=== PATIENT | female | born 1980 | race Caucasian/White ===

== ENCOUNTER 2020-04-06 13:36 | Emergency (ER) | payer MEDICAID, SELFPAY ==
--- NOTE | 2020-04-06 14:46 | HMH.EDUTC ---
[facility] [place] Clinical Impression: Sebaceous cyst of ear Disposition: Home, Self-Care Condition on Discharge: Good Instructions: DI for Epidermal Cyst Additional Instructions: Follow up with Dr Morales for excision Prescriptions: cephALEXin [Keflex 500mg Cap] 500 mg PO Q6H 10 Days #40 cap Transmission Status: Pending to [facility] Referrals: Tyrone Morales MD [Staff Physician] - Time of Disposition: 14:58 Medical Decision Making - Poli Inquiry Pt receiving controlled substance: No [facility] [place] - General Stated complaint: spot behind ear swollen Time Seen by Provider: 04/06/20 14:51 - History of Present Illness Provider Complaint: Patient has knot behind left ear. Has had for about 4 months. No fever. Tried to raghavendra it and nothing was expressed, but lesion seemed to move inward to the inside of her ear. It is now very tender to touch. Onset (ago): month(s) (4) Location: face Relieving factors: none Exacerbating factors: none Associated symptoms: denies other symptoms Treatments prior to arrival: none - Related Data Home Medications Medication Instructions Recorded Confirmed buprenorphine 5.7 mg-naloxone 1.4 1.5 tab SUBLINGUAL QDAY tab 10/02/17 mg sublingual tablet trazodone 50 mg tablet 50 mg PO QPM tab 10/02/17 Previous Rx's Medication Instructions Recorded cephALEXin [Keflex 500mg Cap] 500 mg PO Q6H 10 Days #40 cap 04/06/20 Allergies Allergy/AdvReac Type Severity Reaction Status Date / Time No Known Allergies Allergy Verified 10/02/17 11:02 [facility] History - Hepatitis A Screen Attestation statement:: This patient has been screened for Hepatitis A risk factors. I have reviewed the patient's past medical history: Yes Other Surgeries: Yes: Tubal Ligation Comment: Tonsilectomy - Social History Smoking Status: Current every day smoker Tobacco Type: cigarettes # Packs/Day (cigarettes): 1 Alcohol Intake: never Substance Use Type: denies use Occupational Status: employed Family Hx:: Diabetes, Cancer ROS Obtained: Yes All systems reviewed & no additional complaints - ENT Ears, Nose, Mouth, and Throat: Reports as per HPI Physical Exam - General General appearance: alert, in no apparent distress - Head Head exam: atraumatic, normocephalic - Eye Eye exam: Present: PERRL - Expanded ENT Exam External ear exam: Present: other (cystic lesion (small marble size) behind left ear) - Neck Neck exam: Absent: lymphadenopathy - Chest Chest inspection: Present: normal inspection, symmetric chest wall rise - Respiratory Respiratory exam: Present: normal lung sounds bilaterally - Cardiovascular Cardiovascular exam: Present: regular rate, normal rhythm - Neurological Exam Neurological exam: Present: alert, oriented X3 - Psychiatric Psychiatric exam: Present: normal affect, normal mood - Skin Skin exam: Present: warm, dry, intact
[2020-04-06 14:56] VITALS: BP 144/85; PULSE 71; RESP 14; TEMP 36.8; O2SAT 100; BMI 18.1
[2020-04-06 15:04] VITALS: BP 144/85; PULSE 71; RESP 14; TEMP 36.8; O2SAT 100
== END 2020-04-06 15:11 | disposition home or self-care (01) ==
PROVIDERS: Emergency Provider Physician Assistant; PCP Internal Medicine Addiction Medicine
DX: L72.3 Sebaceous cyst (principal); F17.210 Nicotine dependence, cigarettes, uncomplicated
CPT/HCPCS: 99201

== ENCOUNTER → 2020-04-14 14:13 | Outpatient (CLI) | payer MEDICAID, SELFPAY ==
--- NOTE | 2020-04-14 | ECG_ITS ---
APPROVED REPORT Exam: Resting ECG HR:93 bpm ECG Measurements Heart Rate 93 AXES DE 124 P 84 QRSd 80 QRS 80 QT 360 T 42 QTc 447 <Conclusion> Normal sinus rhythm Biatrial abnormality Late R-wave progression Abnormal ECG Electronically signed by : Mauricio Fontaine, 04/16/2020 07:55:06
[2020-04-14 14:46] LABS: Basophils % 0.3 % (0.1-2.0); Eosinophils # 0.2 K/mm3 (0.0-0.4); Hematocrit 43.1 % (37.0-47.0); Hemoglobin 14.7 g/dL (12.2-16.2); Lymphocytes # 2.5 K/mm3 (0.7-4.5); Lymphocytes % 29.2 % (10-50); Mean Corpuscular HGB Conc 34.2 g/dL (31.8-35.4); Mean Corpuscular Hemoglobin 31.9 pg (27.0-31.2); Mean Corpuscular Volume 93.3 fl (81-99); Mean Platelet Volume 9.3 fl (7.4-10.4); Monocytes # 0.3 K/mm3 (0.1-1.0); Neutrophils # 5.5 K/mm3 (1.8-7.8); Neutrophils % 64.5 % (37.0-80.0); Platelet Count 209 K/mm3 (142-424); Red Blood Count 4.62 M/mm3 (4.20-5.40); Red Cell Distribution Width 13.1 % (11.5-17.5); White Blood Count 8.6 K/mm3 (4.8-10.8)
[2020-04-14 15:11] LABS: Chloride 104 mmol/L (98-107); Sodium 142 mmol/L (136-145)
[2020-04-14 15:14] LABS: Alanine Aminotransferase 12 U/L (12-78); Albumin Level 4.6 g/dl (3.5-5.0); Albumin/Globulin Ratio 1.6 (1.1-1.8); Alkaline Phosphatase 57 U/L (38-126); Aspartate Amino Transferase 22 U/L (14-36); Bilirubin,Total 0.4 mg/dl (0.2-1.3); Blood Urea Nitrogen 8 mg/dl (7-17); Carbon Dioxide 30 mmol/L (22.0-30.0); Estimated Glomerular Filt Rate 112 ml/min (>60); GFR (African American) 135 ML/MIN (>60); Globulin 2.9 g/dL (1.3-3.2); Total Protein,Serum 7.5 g/dl (6.3-8.2)
[2020-04-14 15:15] LABS: Calcium 10.1 mg/dl (8.4-10.2); Glucose 103 mg/dl (74-100)
[2020-04-14 15:20] LABS: HCG Qualitative, Serum Negative (Negative)
[2020-04-14 17:18] LABS: Coronavirus 19 IgG Antibody Negative (Negative); Coronavirus 19 IgM Antibody Negative (Negative)
== END ==
PROVIDERS: Visit Provider Otolaryngology
DX: Z01.818 Encounter for other preprocedural examination (principal); D23.22 Other benign neoplasm of skin of left ear and external auricular canal
CPT/HCPCS: 36415; 80053; 84703; 85025; 86328; 93005

== ENCOUNTER 2020-04-15 08:39 | Day surgery (SDC) | payer MEDICAID, SELFPAY ==
[2020-04-13 10:42] VITALS: BMI 18.1
[2020-04-15 08:58] VITALS: BP 127/78; PULSE 98; RESP 18; TEMP 36.6; O2SAT 97
--- NOTE | 2020-04-15 10:23 | HMH.ANESCL ---
[facility] Anesthesia Checklist - Patient Identification Patient Identification: Arm Band - Structural Data Admitted From: Home Planned Operative Procedure/s: excision cyst left ear Consent for Planned Operative Procedure(s) Verified: Yes Verified Documents: Surgical Consent, History and Physical - NPO Status Verified Time NPO: 00:00 - Additional verifications Anesthesia Reactions: No Hx Blood Transfusions: No Blood Transfusion Reaction: No - Airway Assessment C-Spine Mobility Assessed: Yes (mp2) TMJ Mobility Assessed: Yes Dentition: Good Dentition - Neurological Assessment Level of Consciousness: Awake, Alert - Anesthesia Plan Anesthesia Risk discussed: Yes Anesthesia Plan: Verified ASA Class: II Anesthesia Type: General [facility] History I have reviewed the patient's past medical history: Yes Medical History: Reports:: Depression Denies:: Cancer, Diabetes Mellitus Type 1, Diabetes Mellitus Type 2, Internal Pacemaker, MRSA, Seizures *Have you ever received a pneumonia vaccine?: No *Have you received a flu vaccine this season?: No Other Medical History: Denies: Blood Transfusion Reaction Anesthesia experience/problems:: nac Laterality Cases: Bilateral: Tonsillectomy Other Surgeries: Yes: Tubal Ligation, Other. No: Pacemaker Amputation: No Fractures: No - *Social History Last grade of school completed: Some college Smoking Status: Current every day smoker Tobacco Type: cigarettes # Packs/Day (cigarettes): 1 Alcohol Intake: never Substance Use Type: denies use *Occupational Status:: employed Housing: house Household Members: significant other, children *Travel in the last 8 weeks: None - Psychiatric History Pschychiatric History:: Reports:: Depression Family Hx:: Unable to obtain
--- NOTE | 2020-04-15 11:39 | HMH.OPNOTE ---
Date of procedure: 04/15/20 Pre-op Diagnosis:: Cystic neoplasm posterior aspect left ear Post-op Diagnosis:: same Procedure performed:: Excision of cystic lesion 2.5 cm posterior aspect left ear with tissue rearrangement repair Surgeon:: Tyrone Morales MD PIECE DYEING MACHINE TENDER:: Andrew Jack Anesthesia: MAC Estimated blood loss (mL): 2 Operative findings:: same Operative note:: With the patient under a local MAC type of anesthesia having been given 1 g of Ancef and 8 mg of Decadron the left ear was prepped and draped the left eye was protected with tape. The perilesional area was infiltrated with 2 cc of 2% lidocaine containing epinephrine. An ellipse of skin was marked out over the cystic lesion and the ellipse of skin was incised and the lesion was mobilized and removed in entirety using tenotomy scissors. Bleeding was 2 cc and stopped with bipolar cautery. Inferior and posterior incisions were made, Surgicel snow was placed in the defect and a tissue rearrangement geometric plastic repair was done with interrupted 4-0 nylon sutures. A Dermabond dressing was applied and the patient was sent to recovery in good general condition. Condition: stable Disposition: PACU Complications:: none
[2020-04-15 11:45] VITALS: BP 125/79; PULSE 64; RESP 18; TEMP 36.2; O2SAT 100
[2020-04-15 12:00] VITALS: BP 110/68; PULSE 68; RESP 18; O2SAT 100
[2020-04-15 12:15] VITALS: BP 107/78; PULSE 67; RESP 18; O2SAT 100
== END 2020-04-15 12:15 | disposition home or self-care (01) ==
LOC: OR 08:40
PROVIDERS: PCP Internal Medicine Addiction Medicine; Visit Provider Otolaryngology
PROC: (CPT 14060; principal; 2020-04-15 10:00)
DX: L72.0 Epidermal cyst (principal); F32.9 Major depressive disorder, single episode, unspecified; Z90.89 Acquired absence of other organs; Z79.899 Other long term (current) drug therapy; Z72.0 Tobacco use; Z80.9 Family history of malignant neoplasm, unspecified; Z83.3 Family history of diabetes mellitus; D23.22 Other benign neoplasm of skin of left ear and external auricular canal
CPT/HCPCS: 14060; 96374; 96375

== ENCOUNTER → 2020-09-01 14:15 | Outpatient (CLI) | payer MEDICAID, SELFPAY ==
--- NOTE | 2020-09-01 14:20 | US_ITS ---
PROCEDURE: US BREAST LT COMPLETE US BREAST RT COMPLETE CLINICAL INDICATION: Fibrocystic breasts/tenderness pt feels small lump COMPARISON: US US BREAST RT COMPLETE from 09/01/2020 FINDINGS: These exams are submitted to me for interpretation on 09/22/2020 Left breast: At 2 o'clock there is an irregular cystic lesion measuring 14 by 8 x 4 mm with some wall thickening posteriorly. At 3 o'clock there is a 5 mm complicated appearing cyst. At 12 o'clock there is a 9 x 5 mm complicated appearing cyst with multiple small internal septa. Small node is present in the axilla. Right breast: Complicated cyst at 5 o'clock at 4 by 4 mm. Complicated cyst at 7 o'clock at 9 by 5 mm. Complicated cyst at 10 o'clock measuring 2.5 x 2.3 x 1.3 cm with internal septa 8 mm complicated cyst at 9 o'clock IMPRESSION: There are bilateral complicated breast cysts. The largest cyst is on the right at 10 o'clock measuring 2.5 cm. The largest cyst does not match the area of palpable concern. Mammogram suggested for complete evaluation BI-RADS category 0, additional imaging recommended. Recommend bilateral diagnostic mammogram Dictated by: Osvaldo Mccracken MD 09/22/2020 14:02 Osvaldo Mccracken MD in [facility] 09/22/2020 14:02
--- NOTE | 2020-09-01 14:20 | XR_ITS ---
PROCEDURE: XR PELVIS 1-2V CLINICAL INDICATION: bilateral hip pain COMPARISON: No exams were available for comparison TECHNIQUE: XR Pelvis AP View FINDINGS: No fracture or dislocation is evident. No significant degenerative change. No lytic or blastic change. IMPRESSION: No acute findings. Dictated by: Dr. David Chavis MD 09/01/2020 15:43 Dr. David Chavis MD in [facility] 09/01/2020 15:43
--- NOTE | 2020-09-01 14:20 | XR_ITS ---
PROCEDURE: XR LUMBAR SPINE MIN 4V CLINICAL INDICATION: lbp COMPARISON: No exams were available for comparison FINDINGS: There is normal curvature and alignment alignment lower lumbar spine. There is mild straightening of the curvature at the thoracolumbar junction suggesting possible muscle spasm. All lumbar vertebrae appear intact and disc spaces are well maintained throughout. There is no pars defect. The SI joints appear normal IMPRESSION: Question mild muscle spasm thoracolumbar junction otherwise normal study Dictated by: Dr. David Chavis MD 09/01/2020 15:42 Dr. David Chavis MD in [facility] 09/01/2020 15:42
[2020-09-01 15:10] LABS: Basophils % 0.4 % (0.1-2.0); Eosinophils # 0.1 K/mm3 (0.0-0.4); Eosinophils % 1.8 % (0.1-12.0); Hematocrit 46.2 % (37.0-47.0); Hemoglobin 14.9 g/dL (12.2-16.2); Lymphocytes # 1.9 K/mm3 (0.7-4.5); Lymphocytes % 25.9 % (10-50); Mean Corpuscular HGB Conc 32.3 g/dL (31.8-35.4); Mean Platelet Volume 10.9 fl (7.4-10.4); Monocytes # 0.4 K/mm3 (0.1-1.0); Monocytes % 5.6 % (1.7-9.3); Neutrophils # 4.8 K/mm3 (1.8-7.8); Neutrophils % 66.3 % (37.0-80.0); Platelet Count 240 K/mm3 (142-424); Red Blood Count 4.81 M/mm3 (4.20-5.40); Red Cell Distribution Width 13.5 % (11.5-17.5); White Blood Count 7.2 K/mm3 (4.8-10.8)
[2020-09-01 15:31] LABS: Alanine Aminotransferase 9 U/L (12-78); Albumin Level 4.2 g/dl (3.5-5.0); Albumin/Globulin Ratio 1.4 (1.1-1.8); Alkaline Phosphatase 58 U/L (38-126); Anion Gap 8.9 mEq/L (5-15); Aspartate Amino Transferase 22 U/L (14-36); Bilirubin,Total 0.5 mg/dl (0.2-1.3); Blood Urea Nitrogen 8 mg/dl (7-17); Calcium 9.7 mg/dl (8.4-10.2); Carbon Dioxide 31 mmol/L (22.0-30.0); Chloride 104 mmol/L (98-107); Chol/HDL Ratio 3.5 (1-3.5); Cholesterol 179 mg/dl (140-200); Estimated Glomerular Filt Rate 112 ml/min (>60); GFR (African American) 135 ML/MIN (>60); Glucose 98 mg/dl (74-100); HDL Cholesterol 51 mg/dl (40-60); Potassium 4.9 mmoL/L (3.5-5.1); Sodium 139 mmol/L (136-145); Total Protein,Serum 7.2 g/dl (6.3-8.2); Triglycerides 72 mg/dl (30-150); VLDL Cholesterol 14 mg/dL (0-40)
[2020-09-01 15:42] LABS: Direct LDL Cholesterol 113.02 mg/dL (100-129)
[2020-09-01 15:48] LABS: T4 (Thyroxine) 9.9 ug/dl (5.53-11.0)
[2020-09-01 16:01] LABS: Thyroid Stimulating Hormone 1.24 uIU/mL (0.465-4.68)
[2020-09-01 16:19] LABS: Vitamin B12 615 pg/mL (239-931)
[2020-09-03 05:13] LABS: Hep A Ab, IgM Negative (Negative); Hepatitis B Core Antibody IgM Negative (Negative); Hepatitis B Surface Antigen Negative (Negative)
[2020-09-04 00:19] LABS: Hepatitis C Antibody <0.1 s/co ratio (0.0-0.9)
== END ==
PROVIDERS: PCP Physician Assistant; Visit Provider Nurse Practitioner Obstetrics & Gynecology
DX: N60.11 Diffuse cystic mastopathy of right breast (principal); N60.12 Diffuse cystic mastopathy of left breast; M25.552 Pain in left hip; M25.551 Pain in right hip; M54.10 Radiculopathy, site unspecified; M54.5 Low back pain; G62.9 Polyneuropathy, unspecified; E55.9 Vitamin D deficiency, unspecified; R74.8 Abnormal levels of other serum enzymes
CPT/HCPCS: 72110; 72170; 76641; 80053; 80061; 80074; 82306; 82607; 84436; 84443; 85025

== ENCOUNTER 2020-09-30 17:00 | Outpatient (RCR) | payer MEDICAID, SELFPAY | END 2020-09-30 17:05 | disposition home or self-care (01) | LOC: PT 17:00 | PROVIDERS: PCP Physician Assistant; Visit Provider Physician Assistant | DX: M54.5 Low back pain (principal); M25.551 Pain in right hip; M25.552 Pain in left hip; M54.10 Radiculopathy, site unspecified | CPT/HCPCS: 97163 ==

== ENCOUNTER → 2021-06-03 09:09 | Outpatient (CLI) | payer MEDICAID, SELFPAY ==
--- NOTE | 2021-06-03 09:10 | CT_ITS ---
PROCEDURE: CT ABDOMEN PELVIS WO CON CLINICAL INDICATION: vomiting Left upper quadrant pain COMPARISON: No exams were available for comparison TECHNIQUE: Axial images obtained with sagittal and coronal reformats. All CT scans at the facility use one or more dose reduction, viz: automated exposure control, ma/kV adjustment per patient size (including targeted exams where dose is matched to indication, i.e. head), or iterative reconstruction technique. FINDINGS: LOWER THORAX: No acute finding ABDOMEN & PELVIS: The liver, gallbladder, spleen, and right adrenal gland are unremarkable. There is enlargement of the upper aspect of the left adrenal gland measuring -5 Hounsfield units consistent with an adenoma measuring 13 mm. No obvious pancreatic mass. No renal or ureteral calculi, hydronephrosis, or obvious renal mass on this unenhanced exam. There is a mild amount of retained colonic feces. No intestinal obstruction or free air. No evidence of appendicitis. No evidence of diverticulitis. There is an IUD in place. The uterus is somewhat canted toward the left. There are bilateral tubal ligation clips. No obvious pelvic mass. Multiple unopacified bowel loops in the abdomen or pelvis which could obscure or mimic pathology. If symptoms persist, consider repeat exam with IV and oral contrast. IMPRESSION: 1. No acute finding. 2. Left adrenal adenoma Dictated by: Osvaldo Mccracken MD 06/04/2021 09:20 Osvaldo Mccracken MD in [facility] 06/04/2021 09:20
--- NOTE | 2021-06-03 09:14 | US_ITS ---
PROCEDURE: US ABDOMEN LIMITED CLINICAL INDICATION: RUQ pain COMPARISON: No exams were available for comparison FINDINGS: PANCREAS: Unremarkable. No obvious mass or abnormal fluid collection. No ductal dilatation. Pancreatic tail not well delineated due to overlying bowel gas. LIVER: No focal liver lesions demonstrated. Homogeneous echogenicity. No intrahepatic biliary ductal dilatation evident. There is appropriate direction of blood flow within a non dilated portal vein RIGHT KIDNEY: Unremarkable. Normal size and echogenicity. No hydronephrosis GALLBLADDER: No gallstones, gallbladder wall thickening, pericholecystic fluid, or biliary dilatation. IMPRESSION: Unremarkable limited abdominal ultrasound as detailed above disc Dictated by: Osvaldo Mccracken MD 06/03/2021 15:43 Osvaldo Mccracken MD in [facility] 06/03/2021 15:43
== END ==
PROVIDERS: PCP Physician Assistant; Visit Provider Physician Assistant
DX: R10.11 Right upper quadrant pain (principal); R11.10 Vomiting, unspecified
CPT/HCPCS: 74176; 76705

== ENCOUNTER → 2021-06-03 10:07 | Outpatient (CLI) | payer MEDICAID, SELFPAY ==
[2021-06-03 10:41] LABS: Basophils # 0.1 K/mm3 (0-0.2); Basophils % 0.9 % (0.1-2.0); Eosinophils # 0.1 K/mm3 (0.0-0.4); Eosinophils % 2.4 % (0.1-12.0); Hematocrit 47.1 % (37.0-47.0); Hemoglobin 15.4 g/dL (12.2-16.2); Lymphocytes # 1.8 K/mm3 (0.7-4.5); Lymphocytes % 34.1 % (10-50); Mean Corpuscular HGB Conc 32.8 g/dL (31.8-35.4); Mean Corpuscular Hemoglobin 31.5 pg (27.0-31.2); Mean Platelet Volume 11.8 fl (7.4-10.4); Monocytes # 0.3 K/mm3 (0.1-1.0); Monocytes % 5.3 % (1.7-9.3); Neutrophils % 57.2 % (37.0-80.0); Platelet Count 169 K/mm3 (142-424); White Blood Count 5.2 K/mm3 (4.8-10.8)
[2021-06-03 11:18] LABS: Alanine Aminotransferase 10 U/L (12-78); Albumin Level 4.3 g/dl (3.5-5.0); Albumin/Globulin Ratio 1.4 (1.1-1.8); Alkaline Phosphatase 63 U/L (38-126); Amylase 58 U/L (30-110); Anion Gap 11.3 mEq/L (5-15); Aspartate Amino Transferase 22 U/L (14-36); Bilirubin,Total 0.5 mg/dl (0.2-1.3); Blood Urea Nitrogen 5 mg/dl (7-17); Calcium 9.3 mg/dl (8.4-10.2); Carbon Dioxide 30 mmol/L (22.0-30.0); Chloride 105 mmol/L (98-107); Estimated Glomerular Filt Rate 111 ml/min (>60); GFR (African American) 135 ML/MIN (>60); Globulin 3.1 g/dL (1.3-3.2); Glucose 88 mg/dl (74-100); Lipase 45 U/L (23-300); Potassium 4.3 mmoL/L (3.5-5.1); Sodium 142 mmol/L (136-145); Total Protein,Serum 7.4 g/dl (6.3-8.2)
[2021-06-03 11:33] LABS: 25-OH Vitamin D, Total 37.2 ng/mL (30-100)
[2021-06-03 11:49] LABS: Thyroid Stimulating Hormone 2.57 uIU/mL (0.465-4.68)
[2021-06-03 12:06] LABS: Vitamin B12 415 pg/mL (239-931)
[2021-06-04 09:58] LABS: Hep A Ab, IgM Negative (Negative); Hepatitis B Core Antibody IgM Negative (Negative); Hepatitis B Surface Antigen Negative (Negative); Hepatitis C Antibody <0.1 s/co ratio (0.0-0.9)
[2021-06-04 18:36] LABS: H. pylori Breath Test Negative (Negative)
== END ==
PROVIDERS: Visit Provider Physician Assistant
DX: R11.10 Vomiting, unspecified (principal); R94.5 Abnormal results of liver function studies
CPT/HCPCS: 36415; 80053; 80074; 82150; 82306; 82607; 83013; 83690; 84443; 85025

== ENCOUNTER → 2021-06-27 11:11 | Outpatient (CLI) | payer MEDICAID, SELFPAY ==
--- NOTE | 2021-06-27 11:19 | MM_ITS ---
PROCEDURE: MM DIG MAMM BI DX W/CAD Digital Breast Tomosynthesis Included CLINICAL INDICATION: palpable nodule dominick breast COMPARISON: US US BREAST RT COMPLETE from 09/01/2020 US US BREAST LT COMPLETE from 09/01/2020 TECHNIQUE: Standard CC and MLO images and 3D Tomosynthesis was obtained. R2 CAD reviewed. FINDINGS: The breasts are extremely dense which lowers the sensitivity of mammography. Right breast: 3 x 2 x 2.4 cm mass is present in the upper outer right breast central 1/3 which is fairly well-circumscribed on the tomographic images. Ultrasound suggested. No malignant appearing calcifications. In the retroareolar region there is a 1.5 cm mass. Faint calcifications are present in the upper aspect of the right breast and central retroareolar region of the right breast. Mag views and straight mL views suggested. Dermal calcifications noted on the right. Faint calcification noted in the outer aspect of the left breast and in the axillary region of the left breast for which Mag views are suggested as well straight mL view. 9 mm nodules present in the outer upper outer left breast anterior 1/3 IMPRESSION: Bilateral breast nodules. Ultrasound is suggested. Ultrasound was performed on 09/01/2020 however mammogram was not performed at that time. Repeat ultrasound is suggested. Also recommend bilateral magnification views as well as straight mL views. BI-RAD Category: 0 Need Additional Imaging Evaluation FOLLOW-UP: Bilateral magnification views as well as bilateral breast ultrasound (A letter has been sent to the patient regarding results of the study.) Dictated by: Osvaldo Mccracken MD 07/06/2021 11:36 Osvaldo Mccracken MD in [place] 07/06/2021 11:36
== END ==
PROVIDERS: PCP Physician Assistant; Visit Provider Nurse Practitioner Obstetrics & Gynecology
DX: R92.8 Other abnormal and inconclusive findings on diagnostic imaging of breast (principal); N63.20 Unspecified lump in the left breast, unspecified quadrant; N63.10 Unspecified lump in the right breast, unspecified quadrant
CPT/HCPCS: 77062; 77066; G0279

== ENCOUNTER → 2021-07-19 12:08 | Outpatient (CLI) | payer MEDICAID, SELFPAY | PROVIDERS: Visit Provider Surgery | DX: Z01.812 Encounter for preprocedural laboratory examination (principal); Z11.52 Encounter for screening for COVID-19; Z13.810 Encounter for screening for upper gastrointestinal disorder | CPT/HCPCS: C9803; U0003; U0005 ==

== ENCOUNTER 2021-07-20 11:43 | Day surgery (SDC) | payer MEDICAID, SELFPAY ==
[2021-07-14 14:03] VITALS: BMI 17.2
[2021-07-20 11:54] VITALS: BP 122/91; PULSE 76; RESP 18; TEMP 37; O2SAT 100
[2021-07-20 12:37] LABS: Urine Pregnancy, HCG Qual. Negative (Negative)
[2021-07-20 12:41] VITALS: O2SAT 97
--- NOTE | 2021-07-20 12:51 | P.PCN_ITS ---
- Procedure: Date: 07/20/21 Patient Date of :: 1980 Procedure Performed:: Esophagogastroduodenoscopy with biopsies Indications:: Patient is a 41-year-old female referred by Danica Mcallister for upper endoscopy. She states that she has problems keeping food down . This is been ongoing for about 5 years. She has to take Zofran daily. She also describes some postprandial diarrhea occasionally. She has had some decreased appetite. She has had some mild left upper quadrant pain. She does smoke 1 pack/day. 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 She is on ZUBSOLV. She underwent gallbladder ultrasound which was negative for gallstones. She does have an incidental umbilical hernia. Performing Provider:: Jeffrey Castellanos MD Referring Provider:: Danica Mcallister Sedation:: MAC sedation Procedure:: Patient was taken to endoscopy procedure room and positioned in lateral decubitus position. Adequate intravenous sedation was achieved with anesthesia titration of propofol. She did require an appreciable amount of propofol for appropriate sedation. Olympus endoscope was inserted via the oropharynx. Esophagus was cannulated. Endoscope was advanced. Gastroesophageal junction was encountered at approximately 40 cm from the incisors. Stomach was cannulate d and insufflated. Retroflexion revealed no evidence of any hiatal hernia. There was some very mild diffuse gastropathy but this was quite subtle. Gastric mucosal biopsies obtained for CLOtest for H. pylori. Pylorus was traversed. Duodenum appeared unremarkable. Gastric mucosal biopsies obtained for histopathologic analysis. Biopsy was obtained at the gastroesophageal junction. A couple of distal esophageal biopsies were obtained to evaluate for microscopic esophagitis. Stomach was desufflated and the endoscope was withdrawn. Findings:: Relatively unremarkable upper endoscopy with minimal subtle gastropathy Gastroesophageal junction approximately 40 cm from the incisors Recommendations:: Plan to follow-up on the biopsies and histopathologic analysis. Etiology of her symptoms may be functional Complications:: None immediately apparent Estimated blood obtained (mL): 2
[2021-07-20 12:54] VITALS: BP 99/60; PULSE 65; RESP 18; TEMP 36.4; O2SAT 99
[2021-07-20 13:05] VITALS: BP 109/74; PULSE 70; RESP 18; O2SAT 99
[2021-07-20 13:20] VITALS: BP 124/76; PULSE 66; RESP 18; O2SAT 98
--- NOTE | 2021-07-20 13:20 | HMH.ANESCL ---
[facility] Anesthesia Checklist - Patient Identification Patient Identification: Arm Band, Verbal (Name & ) - Structural Data Admitted From: Home Planned Operative Procedure/s: eGD Verified Documents: Surgical Consent - NPO Status Verified Time NPO: 00:00 - Chart Verification Results Verified: HCG - Additional verifications Anesthesia Reactions: No Hx Blood Transfusions: No Blood Transfusion Reaction: No - Cardiovascular Assessment Heart Sounds: S1 & S2 Pulse Rhythm: Regular - Airway Assessment C-Spine Mobility Assessed: Yes TMJ Mobility Assessed: Yes Dentition: Good Dentition - Neurological Assessment Level of Consciousness: Awake, Alert, Appropriate - Anesthesia Plan Anesthesia Risk discussed: Yes ASA Class: II Anesthesia Type: General [facility] History I have reviewed the patient's past medical history: Yes Medical History: Reports:: Anxiety, Depression Denies:: Cancer, Diabetes Mellitus Type 1, Diabetes Mellitus Type 2, Internal Pacemaker, MRSA, Seizures *Have you ever received a pneumonia vaccine?: No *Have you received a flu vaccine this season?: No Other Medical History: Denies: Blood Transfusion Reaction Anesthesia experience/problems:: none Laterality Cases: Bilateral: Tonsillectomy Other Surgeries: Yes: Tubal Ligation, Other. No: Pacemaker Amputation: No Fractures: No - *Social History Last grade of school completed: Some college Smoking Status: Current every day smoker Tobacco Type: cigarettes # Packs/Day (cigarettes): 1 Alcohol Intake: never Alcohol Intake Frequency:: other Substance Use Type: marijuana *Occupational Status:: employed Housing: house Household Members: significant other, children *Travel in the last 8 weeks: None - Psychiatric History Pschychiatric History:: Reports:: Anxiety, Depression Family Hx:: Diabetes, Cancer, Hyperlipidemia, Hypertension, Mental illness
== END 2021-07-20 13:20 | disposition home or self-care (01) ==
LOC: OUTP 11:45
PROVIDERS: PCP Physician Assistant; Visit Provider Surgery
PROC: 0DJ08ZZ Inspection of Upper Intestinal Tract, Via Natural or Artificial Opening Endoscopic (ICD-10-PCS; CPT 43235; principal; 2021-07-20 12:30)
DX: Z72.0 Tobacco use (principal); Z79.899 Other long term (current) drug therapy; K31.9 Disease of stomach and duodenum, unspecified; F41.9 Anxiety disorder, unspecified; F32.9 Major depressive disorder, single episode, unspecified; Z83.3 Family history of diabetes mellitus; Z80.9 Family history of malignant neoplasm, unspecified; Z82.49 Family history of ischemic heart disease and other diseases of the circulatory system; Z83.438 Family history of other disorder of lipoprotein metabolism and other lipidemia
CPT/HCPCS: 43239; 81025; 87339; J2704

== ENCOUNTER → 2021-08-03 14:04 | Outpatient (CLI) | payer MEDICAID, SELFPAY ==
--- NOTE | 2021-08-03 14:04 | MM_ITS ---
PROCEDURE INFORMATION: Exam: US Right Breast, Complete US Left Breast, Complete MG Bilateral Diagnostic Breast Tomosynthesis Exam date and time: 08/03/2021 2:04 PM Age: 41 years old Clinical indication: Patient recalled for further evaluation 2 right-sided breast masses TECHNIQUE: Imaging protocol: Complete ultrasound of all four quadrants of the Right breast and the retroareolar regions, including ultrasound of the axilla when performed. Complete ultrasound of all four quadrants of the Left breast and the retroareolar regions, including ultrasound of the axilla when performed. Bilateral Diagnostic tomosynthesis and 2D mammography including computer-aided detection (CAD) when performed. Unilateral or bilateral exam. COMPARISON: MG MM DIG MAMM BI DX W/CAD 06/27/2021 11:25 AM FINDINGS: MAMMOGRAPHY: 90 degree lateral views of both breasts and spot compression views of both central breasts demonstrates a persistent mass in the right upper outer quadrant measuring 3.3 cm in greatest dimension. Faint calcifications bilaterally have a benign radiographic appearance no suspicious clustered microcalcifications are seen. ULTRASOUND: Sonographic images of both breasts including the retroareolar regions, all 4 quadrants and the axilla do not demonstrate any solid masses. Scattered isolated and clustered cysts are noted bilaterally. In the right upper outer quadrant are 2 adjacent cysts with a combined dimension of 2.7 cm, corresponding to the mass on mammography. In the right 7 o'clock periareolar region is a hypoechoic solid mass measuring 0.5 x 0.4 x 2 cm in dimension. The finding likely represents focal fibrocystic change. Cursors were placed over normal fibroglandular structures in the right 9 o'clock periareolar region. Scattered and clustered cysts in the left breast are also identified measuring up to 0.9 cm in the 2 o'clock axis. No architectural distortion or acoustical shadowing in either breast. No skin thickening or axillary adenopathy. IMPRESSION: 1. Probably benign solid mass in the right 7 o'clock periareolar region better seen on sonography. A six-month follow-up targeted right breast ultrasound is recommended to ensure stability over time unless otherwise clinically indicated. 2. Bilateral cystic change corresponding to the dominant mass seen on mammography in the right upper outer quadrant 3. Bilateral faint benign calcifications ASSESSMENT: BI-RADS Category 3: Probably benign
== END ==
PROVIDERS: PCP Physician Assistant; Visit Provider Nurse Practitioner Obstetrics & Gynecology
DX: R92.8 Other abnormal and inconclusive findings on diagnostic imaging of breast (principal); N63.10 Unspecified lump in the right breast, unspecified quadrant; N63.20 Unspecified lump in the left breast, unspecified quadrant
CPT/HCPCS: 76641; 77062; 77066; G0279

== ENCOUNTER → 2021-10-10 11:26 | Outpatient (CLI) | payer BC, MEDICAID, SELFPAY ==
[2021-10-11 10:49] LABS: Covid-19 Nasal PCR Sendout Lex POSITIVE
== END ==
PROVIDERS: Visit Provider Nurse Practitioner
DX: U07.1 COVID-19 (principal)
CPT/HCPCS: C9803; U0004; U0005

== ENCOUNTER → 2022-08-16 11:37 | Outpatient (CLI) | payer MEDICAID, SELFPAY ==
[2022-08-16 15:04] LABS: Amphetamine/Metha Screen,Urine Positive ng/ml (<1000); Barbiturates Screen,Urine Negative ng/ml (<200)
[2022-08-16 15:06] LABS: Benzodiazepines Screen,Urine Negative ng/ml (<200)
[2022-08-16 15:07] LABS: Cannabinoid Screen,Urine Positive ng/ml (<50); Cocaine Screen,Urine Negative ng/ml (<300)
[2022-08-16 15:08] LABS: Methadone Screen,Urine Negative ng/ml (<300)
[2022-08-16 15:09] LABS: Opiate Screen,Urine Negative ng/ml (<300); Phencyclidine Screen,Urine Negative ng/ml (<25)
== END ==
PROVIDERS: PCP Physician Assistant; Visit Provider Physician Assistant
DX: Z79.899 Other long term (current) drug therapy (principal)
CPT/HCPCS: 80305

== ENCOUNTER → 2022-08-17 10:13 | Outpatient (CLI) | payer MEDICAID, SELFPAY ==
[2022-08-25 11:35] LABS: Amphetamine POSITIVE; Amphetamines POSITIVE; Methamphetamine POSITIVE
[2022-08-25 11:37] LABS: Amphetamine (GC/MS) 1119
[2022-08-25 11:38] LABS: Methamphetamine (GC/MS) 1924
== END ==
PROVIDERS: PCP Physician Assistant; Visit Provider Physician Assistant
DX: Z79.899 Other long term (current) drug therapy (principal)
CPT/HCPCS: 80324

== ENCOUNTER → 2022-09-15 11:43 | Outpatient (CLI) | payer MEDICAID, SELFPAY | PROVIDERS: PCP Student in an Organized Health Care Education/Training Program; Visit Provider Student in an Organized Health Care Education/Training Program | DX: R68.89 Other general symptoms and signs (principal) | CPT/HCPCS: C9803; U0003; U0005 ==

== ENCOUNTER 2024-10-22 09:19 | Emergency (ER) | payer MEDICAID, SELFPAY ==
[2024-10-22 09:29] VITALS: BP 135/91; PULSE 85; RESP 16; TEMP 36.9; O2SAT 99; BMI 15.4
--- NOTE | 2024-10-22 09:29 | PC.NURSE ---
covid/flu swab sent to lab
[2024-10-22 09:30] VITALS: BP 122/91; PULSE 84; O2SAT 100
[2024-10-22 09:31] LABS: Coronavirus 19, PCR Not Detected (NotDetected); Influenza A, PCR Not Detected (NotDetected); Influenza B, PCR Not Detected (NotDetected)
--- NOTE | 2024-10-22 09:36 | HMH.EDGENADL ---
Discharge Plan Disposition Patient Disposition: Home, Self-Care Condition: Good Prescriptions Prescriptions: New ondansetron 4 mg tablet,disintegrating 4 mg PO Q8H PRN (Reason: nausea and vomiting) 4 Days Qty: 12 0RF mytcjclbsmusxgs-qtvtrdtos-TR [Bromfed DM] 2-30-10 mg/5 mL syrup 5 ml PO Q6H PRN (Reason: cold symptoms) Qty: 118 0RF No Action buprenorphine-naloxone 8-2 mg film 1 film BUCCAL BID gabapentin 300 mg capsule 300 mg PO BID 30 Days Qty: 60 2RF Referrals Follow up/Referrals: Isa Ahmadi APRN [Primary Care Provider] - See instructions Activity Restrictions/Add. Instructions Additional Instructions/Restrictions: You were evaluated in the emergency department today. Please sampler pickup your prescriptions at the pharmacy and take them as needed for symptoms. Take Tylenol and ibuprofen every 4-6 hours as needed for pain/fever. You have lymph nodes that are swollen in your neck, likely related to your upper respiratory infection. Please follow-up with your primary care provider for further assessment if these do not resolve with the illness. Clinical Impressions Clinical Impression: Viral URI with cough, Lymphadenopathy Stand Alone Forms Stand Alone Forms: Work/School Release Instructions Patient Instructions: DI for Viral Upper Respiratory Infection -- Adult, DI for Viral Syndrome Print Language Print Language: [place] Discharge ED Provider: Devorah Jacques General Adult HPI General Chief complaint: Upper Respiratory Infection Stated complaint: congestion, fever, cough,vomiting, headache, B/A Time Seen by Provider: 10/22/24 09:24 History of Present Illness HPI narrative: This patient is a 44-year-old female presented to the emergency department for evaluation with concern for 2 days of sore throat, cough, congestion, runny nose, headache, body aches, nausea, and vomiting. She notes that she thinks she has the flu and needs an excuse for work. No other concerns noted currently. Related Data Home Medications ?Medication ?Instructions ?Recorded ?Confirmed buprenorphine 8 mg-naloxone 2 mg 1 film buccal BID 03/21/22 10/22/24 sublingual film Previous Rx's ?Medication ?Instructions ?Recorded gabapentin 300 mg capsule 300 mg PO BID Pain 30 days #60 caps 08/16/22 sealkuknbrpxejr-kaszglxtumxilwa-VL 5 ml PO Q6H PRN cold symptoms #118 10/22/24 2 mg-30 mg-10 mg/5 mL oral syrup mL (Bromfed DM) ondansetron 4 mg disintegrating 4 mg PO Q8H PRN nausea and 10/22/24 tablet vomiting 4 days #12 tabs Allergies Allergy/AdvReac Type Severity Reaction Status Date / Time No Known Allergies Allergy Verified 10/22/24 09:41 [facility] Disclaimer: The information contained in this section may have been updated after the patient was seen, as this information can be updated by other users. Medical History Lumbar pain with radiation down both legs Neuropathy Lumbar pain with radiation down both legs Social History Smoking Status: Current every day smoker tobacco type: cigarettes packs per day: 1 second hand exposure: Yes alcohol intake: never substance use type: marijuana current occupational status: employed Travel in the last 8 weeks: None household members: significant other and children housing: house current occupation: [employer] current occupational exposures/hazards: No caffeine: Yes Have you lived/traveled outside [place] in past 30 days?: No Contact w/someone who lives/traveled outside [place] past 30 days?: No Exposure to someone with infectious disease in past 14 days?: No Do you have a fever (greater than 100.4 F or 38 C)?: No Have you tested positive for COVID-19: No Exposed to someone with COVID-19 in past 14 days?: No Do you have a sore throat?: No Do you have a cough?: Yes Do you have any weakness?: No Do you have any diarrhea?: Yes Are you experiencing any unusual bleeding?: No Do you have any muscle aches/pain?: Yes Do you have any abdominal pain?: No Are you experiencing loss of taste or smell?: No Other Medical History Have you received the Flu Vaccine for this season: No Have you received the Pneumonia Vaccine: No ROS Obtained: Yes All systems reviewed & no additional complaints except as documented Physical Exam General General appearance: alert and in no apparent distress Head Head exam: atraumatic and normocephalic Eye Eye exam: Present normal appearance, PERRL and EOMI ENT ENT exam: Present normal exam, normal oropharynx, mucous membranes moist and normal external ear exam Neck Neck exam: Present full ROM, trachea midline and lymphadenopathy (R anterior cervical); Absent tenderness Chest Chest inspection: Present normal inspection and symmetric chest wall rise; Absent tenderness Respiratory Respiratory exam: Present normal lung sounds bilaterally; Absent respiratory distress, wheezes, stridor or accessory muscle use Cardiovascular Cardiovascular exam: Present regular rate and normal rhythm Abdominal Exam Abdominal exam: Present soft; Absent distention, tenderness or guarding Extremities Exam Extremities exam: Present normal inspection, full ROM and normal capillary refill; Absent tenderness or edema Back Exam Back exam: Present normal inspection and full ROM; Absent tenderness Neurological Exam Neurological exam: Present alert, oriented X3, CN II-XII intact and normal gait; Absent motor sensory deficit Psychiatric Psychiatric exam: Present normal affect and normal mood Skin Skin exam: Present warm and dry Medical Decision Making Medical Records Medical records reviewed: Yes I reviewed the patient's medical records. Screening: Per USPSTF and CDC recommendations, given the prevalence of disease in our region, it is our hospital?s policy to screen for HIV and viral Hepatitis for all patients aged 18 and over and those with ongoing risk factors. Poli Inquiry Pt receiving controlled substance: No Vital Signs: 10/22/24 09:29 10/22/24 09:30 10/22/24 09:54 Temperature 98.5 F Temperature Source Oral Pulse Rate 84 80 Pulse Rate [Left] 85 Respiratory Rate 16 Blood Pressure 122/91 H 117/63 Blood Pressure [Right Arm] 135/91 H Blood Pressure Mean [Right Arm] 105 Blood Pressure Source [Right Arm] Automatic Cuff Blood Pressure Position [Right Arm] Sitting 02 Sat by Pulse Oximetry 99 100 99 Oxygen Delivery Method Room Air Room Air Room Air 10/22/24 10:05 Temperature 98.4 F Temperature Source Pulse Rate 66 Pulse Rate [Left] Respiratory Rate 14 Blood Pressure 115/67 Blood Pressure [Right Arm] Blood Pressure Mean [Right Arm] Blood Pressure Source [Right Arm] Blood Pressure Position [Right Arm] 02 Sat by Pulse Oximetry Oxygen Delivery Method Lab Data Lab results reviewed: Yes I reviewed the patient's lab results. Lab Results 10/22/24 09:26: SARS-CoV-2 (PCR) Not detected, Influenza A Untype (PCR) Not detected, Influenza Type B (PCR) Not detected 10/22/24 09:34: Group A Strep Rapid Negative Orders (Tests/Meds): ORDERS Category Date Time Status Rapid PCR Covid and Flu A/B Stat Lab 10/22/24 09:26 Completed Strep Scrn Group A (Rapid) Stat Lab 10/22/24 09:34 Completed Strep Screen Confirmation Stat Micro 10/22/24 09:34 Received Medical Decision Narrative: In summary, this patient is a 44-year-old female presenting to the Emergency Department for evaluation of fever, cough, congestion, sore throat, headache, nausea, vomiting, body aches x 2 days. Differential diagnoses considered include but are not limited to viral syndrome, pneumonia, sinusitis, pharyngitis, gastroenteritis. Ruling out the most morbid conditions drove assessment. On exam, the patient is very well-appearing. She has mild right-sided cervical lymphadenopathy, but otherwise exam is reassuring. No adventitious lung sounds, abdominal exam is benign. Vitals are normal on cardiac telemetry. workup included viral swab and strep swab.. 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 Strep, COVID, flu swabs came back negative. Exam remains reassuring. At this time, feel patient likely has another viral syndrome and is appropriate for discharge home with prescriptions for Bromfed and Zofran and instructions for supportive management. Should return precautions were given as well as instructions for close follow-up with primary care. Patient was discharged after all questions were answered. Critical Care Critical Care Time Critical Care Time: No
[2024-10-22 09:51] LABS: Strep Scrn Group A (Rapid) Negative (Negative)
[2024-10-22 09:54] VITALS: BP 117/63; PULSE 80; O2SAT 99
--- NOTE | 2024-10-22 09:54 | PC.NURSE ---
I rounded on the pt. no new complaints. I took her a mtyakov. no needs voiced. call long in reach.
[2024-10-22 10:05] VITALS: BP 115/67; PULSE 66; RESP 14; TEMP 36.9; O2SAT 99
== END 2024-10-22 10:09 | disposition home or self-care (01) ==
PROVIDERS: Emergency Provider Emergency Medicine; PCP Nurse Practitioner
DX: J06.9 Acute upper respiratory infection, unspecified (principal); R59.1 Generalized enlarged lymph nodes; R11.2 Nausea with vomiting, unspecified; R51.9 Headache, unspecified; R05.9 Cough, unspecified; J02.9 Acute pharyngitis, unspecified; R09.81 Nasal congestion; M79.10 Myalgia, unspecified site; F17.210 Nicotine dependence, cigarettes, uncomplicated
CPT/HCPCS: 87430; 87636; 99283